=== PATIENT | male | born 1990 | race Caucasian/White ===

== ENCOUNTER 2023-01-08 14:50 | Emergency (ER) | payer OTHER ==
[~2023-01-08] VITALS: Ht 172.7 cm; Wt 90.7 kg
[2023-01-08 14:52] VITALS: BP_SYST 126; BP_SYST 140; BP_DIAS 110; BP_DIAS 86
[2023-01-08 15:42] LABS: BASOPHILS # (AUTO) 0.1 K/uL (0.00-0.22); BASOPHILS % (AUTO) 1.1 % (0.0-2.0); HEMATOCRIT 49.4 % (36-52); HEMOGLOBIN 16.5 g/dL (12.0-18.0); LYMPHOCYTES % (AUTO) 20.8 % (20.5-51.1); MEAN CORPUSCULAR HEMOGLOBIN 26 pg (27-31); MEAN CORPUSCULAR HGB CONC 34 g/dL (33-37); MEAN CORPUSCULAR VOLUME 78.5 fL (80-94); MONOCYTES # (AUTO) 0.6 K/uL (0.8-1.0); MONOCYTES % (AUTO) 6.5 % (1.7-9.3); NEUTROPHILS # (AUTO) 6.9 K/uL (1.8-7.7); NEUTROPHILS % (AUTO) 71.6 % (42.2-75.2); PLATELET COUNT (AUTO) 280 K/uL (140-450); RED BLOOD CELL COUNT(AUTO) 6.29 MIL/uL (4.20-6.10); RED CELL DISTRIBUTION WIDTH 13.3 % (11.6-13.7); WHITE BLOOD COUNT (AUTO) 9.6 K/uL (4.8-10.8)
[2023-01-08 16:00] LABS: ANION GAP 18.8 (8-16); CARBON DIOXIDE 25.5 mmol/L (21-32); POTASSIUM 4.3 mmol/L (3.5-5.1)
[2023-01-08] MEDS ORDERED: NACL 0.9% 1,000 ML IV ONE (16:20)
[2023-01-08 18:21] VITALS: BP 122/74
--- NOTE | 2023-01-08 18:22 | NUR ---
Patient discharged with v/s stable. Written and verbal after care instructions given and explained. Patient verbalized understanding. Ambulatory with steady gait. All questions addressed prior to discharge. Advised to follow up with PMD.
== END 2023-01-08 18:22 | disposition home or self-care (01) ==
LOC: MED 14:50
DX: R00.2 Palpitations (principal); Z79.899 Other long term (current) drug therapy
CPT/HCPCS: 36415; 71045; 80048; 84443; 84484; 85025; 85379; 93005; 99285